=== PATIENT | male | born 1980 ===

== ENCOUNTER 2016-12-22 12:35 | Emergency (ER) | payer BC ==
[~2016-12-22 12:35] MED LIST: NO HOME MEDICATION XX
[2016-12-22] MEDS ORDERED: NORCO 5-325 TA1 EACH PO (12:47)
== END 2016-12-22 12:59 ==
LOC: EDMED 12:35
PROC: 2W3DX1Z Immobilization of Left Lower Arm using Splint (ICD-10-PCS; principal; 2016-12-22)
DX: S52.502A Unspecified fracture of the lower end of left radius, initial encounter for closed fracture (principal); S52.602A Unspecified fracture of lower end of left ulna, initial encounter for closed fracture; W10.9XXA Fall (on) (from) unspecified stairs and steps, initial encounter; Y92.009 Unspecified place in unspecified non-institutional (private) residence as the place of occurrence of the external cause